=== PATIENT | female | born 1965 | race Caucasian/White ===

== ENCOUNTER 2017-04-29 20:27 | Emergency (ER) | payer BC ==
[~2017-04-29] VITALS: Ht 375.9 cm; Wt 67.1 kg
[2017-04-29 22:59] VITALS: BP 130/63
== END 2017-04-29 22:59 | disposition home or self-care (01) ==
LOC: ED 20:27
DX: J44.1 Chronic obstructive pulmonary disease with (acute) exacerbation (principal); F17.210 Nicotine dependence, cigarettes, uncomplicated
CPT/HCPCS: J7512; J7613; J7644